=== PATIENT | male | born 1950 | race Caucasian/White ===

== ENCOUNTER 2017-06-16 12:24 | Day surgery (SDC) | payer MEDICARE, OTHER ==
[~2017-06-16] VITALS: Ht 174 cm; Wt 81.6 kg
[~2017-06-16 12:24] MED LIST: Bupivacaine 0.5% Inj 30 ml vial INJ ONE; Depo-Medrol 40mg Inj IARTIC ONE; Depo-Medrol 80mg Vial IARTIC ONE; Isovue-M 300 15ml INJ ONE; LORazepam Inj 2mg/ml 1ml IV ONE; Lidocaine 1% MPF 10mg/ml 5ml IM ONE
[2017-06-16 13:07] VITALS: BP 128/74
[2017-06-16] MEDS ORDERED: TRAMADOL HCL50 MG ORAL (13:18)
[2017-06-16] MEDS ORDERED: ASPIR 8181 MG ORAL (13:18)
[2017-06-16] MEDS ORDERED: IBUPROFEN600 MG ORAL (13:18)
[2017-06-16] MEDS ORDERED: PLAVIX75 MG ORAL (13:18)
[2017-06-16] MEDS ORDERED: TAMSULOSIN HCL0.4 MG ORAL (13:18)
[2017-06-16] MEDS ORDERED: ATORVASTATIN CA10 MG ORAL (13:18)
[2017-06-16] MEDS ORDERED: NORCO 5-325 TA1 EAC1 ORAL (13:18)
[2017-06-16] MEDS ORDERED: COLACE100 MG ORAL (13:18)
[2017-06-16] MEDS ORDERED: METOPROLOL TART25 MG ORAL (13:18)
[2017-06-16 13:41] LABS: EOSINOPHILS % (AUTO) 3.4 % (0.0-3.0); HEMATOCRIT 41.8 % (42.0-52.0); LYMPHOCYTES % (AUTO) 18.7 % (20.0-45.0); MEAN CORPUSCULAR VOLUME 94 FL (80-99); MONOCYTES % (AUTO) 6.9 % (1.0-10.0); NEUTROPHILS % (AUTO) 70.1 % (45.0-75.0); PLATELET COUNT 185 K/UL (150-450); RED BLOOD COUNT 4.44 M/UL (4.70-6.10); RED CELL DISTRIBUTION WIDTH 10.7 % (11.6-14.8); WHITE BLOOD COUNT 6.9 K/UL (4.8-10.8)
[2017-06-16 14:02] LABS: INR 1.1 (0.9-1.1)
[2017-06-16 15:00] VITALS: BP 134/68
--- NOTE | 2017-06-16 15:00 | Discharge Instructions ---
Discharge Instructions Discharge Instructions Follow up with: Dr. Richards at [facility] [phone] Diet: cardiac 2 GM Na, low fat Resume Normal Activity?: Yes Activity: up ad tatum Pneumonia Vaccine: vaccine not indicated Influenza Vaccine (Jan to Jun): vaccine not indicated Follow Up Orders resume plavix, aspirin, ibuprofen in 24 hours For Surgical Patients Clean and Dry: surgical site Dressing Care: keep dry and clean May shower: Yes Contact your physician for: bleeding, pain, tenderness, redness, swelling, yellowish discharge in the op. site For Congestive Heart Failure Reminder Report to your physician any weight gain of 5 pounds or more in one week. ARACELI RICHARDS Jun 16, 2017 15:00
--- NOTE | 2017-06-16 15:16 | Diagnostic Imaging Report ---
Indication: Pain, degenerative disc disease, intraoperative Technique: Intraoperative Comparison: none Findings: Single intraoperative image demonstrates a surgical tool projected just lateral to the midline at the level of the L4 endplate, laterality indeterminate but likely on the left Impression: Intraoperative imaging, as described
--- NOTE | 2017-06-16 21:30 | Procedure Note ---
DATE OF PROCEDURE: 06/16/2017 SURGEON: Elva Velez M.D. PRE-PROCEDURE DIAGNOSIS: Degenerative disk disease, lumbar with radiculopathy. POST-PROCEDURE DIAGNOSIS: Degenerative disk disease, lumbar with radiculopathy. PROCEDURE PERFORMED: Lumbar epidural steroid injection under fluoroscopy. PROCEDURE IN DETAIL: The patient was warned of the risks, benefits were discussed, questions were answered. The patient indicated that he understood and accepted the risks, including not only those involved with the block procedure itself, but also those regarding the use of x-ray contrast agent, radiation, nerve damage, bleeding, and . The patient was transported to the radiology suite and placed in the prone position on the fluoroscopic compatible table. The skin over L2-L3 and L3-L4 was sterilely prepped and draped in the usual fashion. Spinal elements were visualized from a posterior vantage point using fluoroscopic guidance. The skin over L2-L3 and L3-L4 was anesthetized with 1% lidocaine methylparaben-free, 1ml at each area, using 28-gauge needle. A 17-gauge Tuohy needle was introduced through the same spaces,L2-3 first then L3-4, and advanced with loss of resistance technique to the epidural spaces. There was no CSF or heme appreciated at either location. Test doses were done with lidocaine with epinephrine were negative in both areas. There was only slight paresthesia in the area of the patient's pain complaint. Depo-Medrol 60 mg plus 1 ml of 0.5% Marcaine along with 1 mL of preservative-free normal saline was instilled in both L2-L3 and L3-L4 interspaces. The needle was removed while the tracks were flushed with preservative-free normal saline. The patient tolerated the procedure well. He was able to move both lower extremities without problem. There was no residual motor or sensory deficit appreciated. The patient was then transported to short stay surgery to be discharged in stable condition with appropriate instructions for postprocedure followup care. The patient received 1 mg of Ativan IV push during the case. There was no radiologist in attendance. Radiological technical assistance only was provided. Elva Richards M.D. DR: HANNAH JOB#: [id number] CC: DEBI
== END 2017-06-16 15:35 | disposition home or self-care (01) ==
LOC: SUR 12:24 → RAD 12:24
DX: M51.36 Other intervertebral disc degeneration, lumbar region (principal); M54.16 Radiculopathy, lumbar region; I25.10 Atherosclerotic heart disease of native coronary artery without angina pectoris; M50.30 Other cervical disc degeneration, unspecified cervical region; Z95.5 Presence of coronary angioplasty implant and graft; Z79.02 Long term (current) use of antithrombotics/antiplatelets; Z87.442 Personal history of urinary calculi; Z79.82 Long term (current) use of aspirin
CPT/HCPCS: 36415; 62323; 76000; 85025; 85610; 85730; J1030; J1040; J3490; Q9967